=== PATIENT | female | born 1935 | race Asian ===

== ENCOUNTER 2022-04-02 01:46 | Inpatient (IN) | payer OTHER ==
[2022-04-02 01:59] VITALS: BMI 28.1
[2022-04-02] MEDS ORDERED: LACTATED RINGERS SOLUTION 1000 ML INFUS.BAG IV ONE (02:31)
[2022-04-02] MEDS ORDERED: ALBUTEROL SO4 2.5/IPRATROPIUM 0.5 INH SOL 3 ML VIAL.NEB. NEB ONE (02:39)
[2022-04-02] MEDS ORDERED: DEXAMETHASONE 4 MG TABLET (FP) PO ONE (02:49)
[2022-04-02] MEDS: ALBUTEROL SO4 2.5/IPRATROPIUM 0.5 INH SOL 3 ML VIAL.NEB. NEB SCH ×4 (02:57→03:41)
[2022-04-02] MEDS ORDERED: DEXAMETHASONE SOD PHOSPHATE 4 MG/1 ML VIAL IVPUSH ONE (03:04)
[2022-04-02] MEDS ORDERED: DEXAMETHASONE SOD PHOSPHATE 4 MG/1 ML VIAL ONE (03:09)
[2022-04-02 03:12] LABS: HEMATOCRIT 36.1 % (32.4-45.2); HEMOGLOBIN 12.6 GM/dL (10.7-15.3); MCH 29.3 pg (25.7-33.7); MEAN CELL VOLUME 83.7 fl (80-96); MEAN PLT VOLUME 7.4 fl (7.5-11.1); PLATELET COUNT 245 10^3/uL (134-434); RBC 4.31 M/mm3 (3.60-5.2); RDW 12.8 % (11.6-15.6); VENOUS BASE EXCESS -6.2 mmol/L (-2-2); VENOUS O2 SATURATION 91.1 % (70-80); VENOUS PH 7.295 (7.310-7.410); WHITE BLOOD COUNT 7.2 K/mm3 (4.0-10.0)
[2022-04-02] MEDS ORDERED: REMDESIVIR 200 MG in SODIUM CHLORIDE 250 ML IVPB ONE (03:37)
[2022-04-02 03:38] LABS: CHLORIDE 84 mmol/L (98-107)
[2022-04-02 03:40] LABS: CALCIUM 9.3 mg/dL (8.5-10.1)
[2022-04-02 03:41] LABS: ALBUMIN 3.4 g/dl (3.4-5.0); BLOOD UREA NITROGEN 18.8 mg/dL (7-18); CO2 25 mmol/L (21-32); GLUCOSE,RANDOM 178 mg/dL (74-106); MAGNESIUM 1.8 mg/dL (1.8-2.4)
[2022-04-02 03:43] LABS: SGPT/ALT 44 U/L (13-61)
[2022-04-02 03:44] LABS: CREATININE 1.1 mg/dL (0.55-1.3); SGOT/AST 49 U/L (15-37)
[2022-04-02 03:45] LABS: BILIRUBIN,TOTAL 0.5 mg/dL (0.2-1)
[2022-04-02 03:47] LABS: ALK PHOS 73 U/L (45-117)
[2022-04-02 04:08] LABS: LACTIC ACID 2.7 mmol/L (0.4-2.0)
[2022-04-02 04:09] LABS: ANION GAP 10 MMOL/L (8-16); SODIUM 119 mmol/L (136-145)
[2022-04-02] MEDS ORDERED: SODIUM CHLORIDE 1,000 ML IV SCH ×2 (04:15→14:21)
[2022-04-02] MEDS ORDERED: LORazepam 2 MG/ML SDV VIAL IVPUSH ONE ×2 (04:41→04:58)
[2022-04-02] MEDS ORDERED: DEXMEDETOMIDINE IN 0.9 % NACL 400 MCG/100 ML VIAL IVPB SCH (05:45)
[2022-04-02 05:47] LABS: ANISOCYTOSIS 3+; MACROCYTOSIS 0; OVALOCYTE 1+; ROULEAU 1+; TARGET CELLS 1+
[2022-04-02] MEDS ORDERED: HEPARIN NA (PORCINE) 5,000 UNITS/ML 1ML VIAL SQ SCH (06:00)
[2022-04-02] MEDS ORDERED: INSULIN SLIDING SCALE (NOVOLOG) 1 VIAL SQ SCH (07:00)
[2022-04-02 09:43] LABS: ARTERIAL BLD GAS O2 SATURATION 93.1 % (95-98); ARTERIAL BLOOD GAS PO2 71.6 mmHg (80-100); ARTERIAL BLOOD GAS pH 7.317 (7.350-7.450)
[2022-04-02 09:48] LABS: ALLENS TEST POSITIVE
[2022-04-02] MEDS ORDERED: FAMOTIDINE 20 MG/50 ML IVPB 20 MG/50 ML MG IVPB ONE (10:15)
[2022-04-02] MEDS ORDERED: DEXTROSE 5%-WATER - 50 ML IVPB ONE (10:23)
[2022-04-02] MEDS ORDERED: cefTRIAXone SODIUM 1 GM VIAL ONE (10:23)
[2022-04-02] MEDS: CEFTRIAXONE 1 GM in DEXTROSE 5%-WATER - 50 ML IVPB SCH (10:27)
[2022-04-02] MEDS: AZITHROMYCIN IVPB 500 MG/250 ML BAG IVPB SCH (10:28)
[2022-04-02] MEDS: MUPIROCIN 2% TOPICAL OINTMENT FOR DECOLONIZATION NS SCH ×2 (10:55→23:28)
[2022-04-02 11:55] LABS: HEMATOCRIT 33.2 % (32.4-45.2); HEMOGLOBIN 11.4 GM/dL (10.7-15.3); MCH 28.8 pg (25.7-33.7); MCHC 34.4 g/dl (32.0-36.0); MEAN CELL VOLUME 83.6 fl (80-96); MEAN PLT VOLUME 8.2 fl (7.5-11.1); PLATELET COUNT 136 10^3/uL (134-434); RBC 3.97 M/mm3 (3.60-5.2); RDW 12.7 % (11.6-15.6); WHITE BLOOD COUNT 12.6 K/mm3 (4.0-10.0)
[2022-04-02] MEDS: INSULIN SLIDING SCALE (NOVOLOG) 1 VIAL SQ SCH ×2 (11:55→17:25)
[2022-04-02 12:20] LABS: CHLORIDE 86 mmol/L (98-107); SODIUM 122 mmol/L (136-145)
[2022-04-02 12:22] LABS: ALBUMIN 3.1 g/dl (3.4-5.0); ANION GAP 12 MMOL/L (8-16); BLOOD UREA NITROGEN 18.1 mg/dL (7-18); CALCIUM 9.4 mg/dL (8.5-10.1); CO2 25 mmol/L (21-32); GLUCOSE,RANDOM 190 mg/dL (74-106)
[2022-04-02 12:25] LABS: SGPT/ALT 41 U/L (13-61)
[2022-04-02 12:26] LABS: SGOT/AST 54 U/L (15-37)
[2022-04-02 12:27] LABS: BILIRUBIN,TOTAL 0.4 mg/dL (0.2-1); TOT PROT 6.1 g/dl (6.4-8.2)
[2022-04-02 12:28] LABS: ALK PHOS 63 U/L (45-117)
[2022-04-02 12:30] LABS: N-TERMINAL BNP 4391.6 pg/ml (5-450)
[2022-04-02] MEDS: ENOXAPARIN NA (PORCINE) 40 MG/0.4 ML DISP.SYRIN SQ SCH (14:35)
[2022-04-02 15:55] LABS: URINE APPEARANCE CLEAR; URINE BILIRUBIN NEGATIVE (NEGATIVE); URINE COLOR YELLOW; URINE GLUCOSE (UA) TRACE (NEGATIVE); URINE KETONE NEGATIVE (NEGATIVE); URINE LEUK ESTERASE NEGATIVE (NEGATIVE); URINE NITRITE NEGATIVE (NEGATIVE); URINE PROTEIN NEGATIVE (NEGATIVE); URINE UROBILINOGEN 0.2 mg/dL (0.2-1.0)
[2022-04-02 18:33] LABS: CALCIUM 9.2 mg/dL (8.5-10.1)
[2022-04-02 18:34] LABS: BLOOD UREA NITROGEN 19.1 mg/dL (7-18)
[2022-04-03] MEDS: INSULIN SLIDING SCALE (NOVOLOG) 1 VIAL SQ SCH ×5 (00:08→22:58)
[2022-04-03] MEDS: CHLORHEXIDINE GLUCONATE 4% CLEANSER FOR DECOLONIZATION TP SCH ×2 (00:08→22:59)
[2022-04-03 07:17] LABS: HEMATOCRIT 36.1 % (32.4-45.2); HEMOGLOBIN 12.3 GM/dL (10.7-15.3); MCH 28.4 pg (25.7-33.7); MEAN CELL VOLUME 83.5 fl (80-96); MEAN PLT VOLUME 8.4 fl (7.5-11.1); PLATELET COUNT 246 10^3/uL (134-434); RBC 4.32 M/mm3 (3.60-5.2); RDW 12.5 % (11.6-15.6)
[2022-04-03 07:31] LABS: CALCIUM 9.3 mg/dL (8.5-10.1)
[2022-04-03 07:32] LABS: BLOOD UREA NITROGEN 25.3 mg/dL (7-18)
[2022-04-03 07:34] LABS: ALBUMIN 2.9 g/dl (3.4-5.0)
[2022-04-03 07:35] LABS: CREATININE 0.9 mg/dL (0.55-1.3)
[2022-04-03 07:37] LABS: BILIRUBIN,TOTAL 0.4 mg/dL (0.2-1); TOT PROT 5.8 g/dl (6.4-8.2)
[2022-04-03] MEDS ORDERED: DEXTROSE 5%-WATER - 50 ML IVPB ONE (09:00)
[2022-04-03] MEDS ORDERED: cefTRIAXone SODIUM 1 GM VIAL ONE (09:00)
[2022-04-03] MEDS: DEXAMETHASONE SOD PHOSPHATE 10 MG/1 ML VIAL IVPUSH SCH (09:25)
[2022-04-03] MEDS: CEFTRIAXONE 1 GM in DEXTROSE 5%-WATER - 50 ML IVPB SCH (09:25)
[2022-04-03] MEDS: ENOXAPARIN NA (PORCINE) 40 MG/0.4 ML DISP.SYRIN SQ SCH (09:25)
[2022-04-03] MEDS: AZITHROMYCIN IVPB 500 MG/250 ML BAG IVPB SCH (09:26)
[2022-04-03] MEDS: MUPIROCIN 2% TOPICAL OINTMENT FOR DECOLONIZATION NS SCH ×2 (09:26→22:59)
[2022-04-03] MEDS: REMDESIVIR 100 MG in SODIUM CHLORIDE 250 ML IVPB SCH (12:24)
[2022-04-03] MEDS: SODIUM CHLORIDE 1 GM TABLET PO SCH ×2 (12:24→22:58)
[2022-04-03] MEDS: ALBUTEROL SO4 HFA INHALER IH PRN (16:00)
[2022-04-04] MEDS: LOSARTAN POTASSIUM 50 MG TABLET PO SCH ×2 (00:40→09:42)
[2022-04-04] MEDS ORDERED: METOPROLOL TARTRATE 5 MG/5 ML VIAL IVPUSH ONE (06:04)
[2022-04-04] MEDS: INSULIN SLIDING SCALE (NOVOLOG) 1 VIAL SQ SCH ×4 (06:09→22:20)
[2022-04-04 07:22] LABS: HEMATOCRIT 36.8 % (32.4-45.2); HEMOGLOBIN 12.5 GM/dL (10.7-15.3); MCH 28.6 pg (25.7-33.7); MCHC 33.8 g/dl (32.0-36.0); MEAN CELL VOLUME 84.7 fl (80-96); MEAN PLT VOLUME 7.8 fl (7.5-11.1); PLATELET COUNT 281 10^3/uL (134-434); RBC 4.35 M/mm3 (3.60-5.2); WHITE BLOOD COUNT 16.9 K/mm3 (4.0-10.0)
[2022-04-04 07:37] LABS: ALBUMIN 2.8 g/dl (3.4-5.0)
[2022-04-04 07:38] LABS: BLOOD UREA NITROGEN 19.4 mg/dL (7-18)
[2022-04-04 07:40] LABS: CREATININE 0.9 mg/dL (0.55-1.3)
[2022-04-04 07:42] LABS: BILIRUBIN,TOTAL 0.4 mg/dL (0.2-1); TOT PROT 5.6 g/dl (6.4-8.2)
[2022-04-04] MEDS: ALBUTEROL SO4 HFA INHALER IH PRN (08:00)
[2022-04-04] MEDS ORDERED: cefTRIAXone SODIUM 1 GM VIAL ONE (09:40)
[2022-04-04] MEDS ORDERED: SODIUM CHLORIDE 50 ML IVPB ONE (09:40)
[2022-04-04] MEDS: DEXAMETHASONE SOD PHOSPHATE 10 MG/1 ML VIAL IVPUSH SCH (09:42)
[2022-04-04] MEDS: MUPIROCIN 2% TOPICAL OINTMENT FOR DECOLONIZATION NS SCH ×2 (09:42→22:20)
[2022-04-04] MEDS: REMDESIVIR 100 MG in SODIUM CHLORIDE 250 ML IVPB SCH (09:47)
[2022-04-04] MEDS: NIFEdipine E.R 60 MG TABLET PO SCH (09:47)
[2022-04-04] MEDS: ENOXAPARIN NA (PORCINE) 40 MG/0.4 ML DISP.SYRIN SQ SCH (09:47)
[2022-04-04] MEDS: CEFTRIAXONE 1 GM in SODIUM CHLORIDE 50 ML IVPB SCH (09:49)
[2022-04-04] MEDS: AZITHROMYCIN IVPB SCH (09:58)
[2022-04-04] MEDS: SODIUM CHLORIDE IVPB SCH (09:58)
[2022-04-04] MEDS: SODIUM CHLORIDE 1 GM TABLET PO SCH ×2 (09:58→22:20)
[2022-04-04] MEDS ORDERED: ALBUTEROL SO4 2.5/IPRATROPIUM 0.5 INH SOL 3 ML VIAL.NEB. NEB PRN (10:13)
[2022-04-04] MEDS ORDERED: ALBUTEROL SO4 2.5/IPRATROPIUM 0.5 INH SOL 3 ML VIAL.NEB. NEB STA (10:18)
[2022-04-04] MEDS: ALBUTEROL SO4 2.5/IPRATROPIUM 0.5 INH SOL 3 ML VIAL.NEB. NEB SCH ×4 (11:25→19:59)
[2022-04-04] MEDS: CHLORHEXIDINE GLUCONATE 4% CLEANSER FOR DECOLONIZATION TP SCH (22:20)
[2022-04-05] MEDS: INSULIN SLIDING SCALE (NOVOLOG) 1 VIAL SQ SCH ×4 (06:16→21:29)
[2022-04-05 07:32] LABS: CALCIUM 8.9 mg/dL (8.5-10.1)
[2022-04-05 07:33] LABS: ALBUMIN 2.6 g/dl (3.4-5.0); BLOOD UREA NITROGEN 17.5 mg/dL (7-18); MAGNESIUM 1.9 mg/dL (1.8-2.4)
[2022-04-05 07:36] LABS: CREATININE 0.9 mg/dL (0.55-1.3); PHOSPHOROUS 2.2 mg/dL (2.5-4.9)
[2022-04-05 07:37] LABS: HEMATOCRIT 37.6 % (32.4-45.2); HEMOGLOBIN 12.8 GM/dL (10.7-15.3); LYMPH % 6.1 % (8-40); MCH 28.6 pg (25.7-33.7); MCHC 33.9 g/dl (32.0-36.0); MEAN CELL VOLUME 84.4 fl (80-96); MEAN PLT VOLUME 8.1 fl (7.5-11.1); MONO % 7.7 % (3.8-10.2); NEUT % 86.2 % (42.8-82.8); PLATELET COUNT 271 10^3/uL (134-434); RBC 4.45 M/mm3 (3.60-5.2); RDW 13.2 % (11.6-15.6); WHITE BLOOD COUNT 15.1 K/mm3 (4.0-10.0)
[2022-04-05 07:38] LABS: BILIRUBIN,TOTAL 0.6 mg/dL (0.2-1); TOT PROT 5.6 g/dl (6.4-8.2)
[2022-04-05] MEDS: ALBUTEROL SO4 2.5/IPRATROPIUM 0.5 INH SOL 3 ML VIAL.NEB. NEB SCH ×4 (07:45→20:00)
[2022-04-05] MEDS ORDERED: cefTRIAXone SODIUM 1 GM VIAL ONE (09:11)
[2022-04-05] MEDS ORDERED: SODIUM CHLORIDE 50 ML IVPB ONE (09:11)
[2022-04-05] MEDS: CEFTRIAXONE 1 GM in SODIUM CHLORIDE 50 ML IVPB SCH (09:17)
[2022-04-05] MEDS: SODIUM CHLORIDE 1 GM TABLET PO SCH ×2 (09:17→21:29)
[2022-04-05] MEDS: REMDESIVIR 100 MG in SODIUM CHLORIDE 250 ML IVPB SCH (09:17)
[2022-04-05] MEDS: DEXAMETHASONE SOD PHOSPHATE 10 MG/1 ML VIAL IVPUSH SCH (09:18)
[2022-04-05] MEDS: ENOXAPARIN NA (PORCINE) 40 MG/0.4 ML DISP.SYRIN SQ SCH (09:18)
[2022-04-05] MEDS: AZITHROMYCIN IVPB SCH (09:19)
[2022-04-05] MEDS: SODIUM CHLORIDE IVPB SCH (09:19)
[2022-04-05] MEDS: MUPIROCIN 2% TOPICAL OINTMENT FOR DECOLONIZATION NS SCH ×2 (09:19→21:29)
[2022-04-05] MEDS: LOSARTAN POTASSIUM 50 MG TABLET PO SCH (09:19)
[2022-04-05] MEDS: NIFEdipine E.R 60 MG TABLET PO SCH (09:19)
[2022-04-05] MEDS: NYSTATIN 500,000 UNITS/5 ML SUSPENSION PO SCH ×2 (12:04→17:17)
[2022-04-05] MEDS ORDERED: QUEtiapine FUMARATE 25 MG TABLET PO ONE (19:31)
[2022-04-05] MEDS ORDERED: HALOPERIDOL LACTATE 5 MG/ML ONE (19:37)
[2022-04-05] MEDS ORDERED: HALOPERIDOL LACTATE 5 MG/ML IM ONE (20:03)
[2022-04-05] MEDS: CHLORHEXIDINE GLUCONATE 4% CLEANSER FOR DECOLONIZATION TP SCH (21:29)
[2022-04-05] MEDS ORDERED: DEXMEDETOMIDINE IN 0.9 % NACL 400 MCG/100 ML VIAL IVPB SCH (22:45)
[2022-04-06] MEDS: NYSTATIN 500,000 UNITS/5 ML SUSPENSION PO SCH ×4 (00:06→17:43)
[2022-04-06] MEDS: INSULIN SLIDING SCALE (NOVOLOG) 1 VIAL SQ SCH ×4 (06:01→22:33)
[2022-04-06 06:55] LABS: HEMATOCRIT 36.6 % (32.4-45.2); HEMOGLOBIN 12.4 GM/dL (10.7-15.3); MCH 28.8 pg (25.7-33.7); MEAN CELL VOLUME 84.7 fl (80-96); MEAN PLT VOLUME 7.5 fl (7.5-11.1); PLATELET COUNT 262 10^3/uL (134-434); RBC 4.32 M/mm3 (3.60-5.2); WHITE BLOOD COUNT 12.9 K/mm3 (4.0-10.0)
[2022-04-06] MEDS: ALBUTEROL SO4 2.5/IPRATROPIUM 0.5 INH SOL 3 ML VIAL.NEB. NEB SCH ×4 (07:20→20:00)
[2022-04-06 07:21] LABS: ALBUMIN 2.5 g/dl (3.4-5.0); BLOOD UREA NITROGEN 17.8 mg/dL (7-18); CALCIUM 9.1 mg/dL (8.5-10.1); MAGNESIUM 2.1 mg/dL (1.8-2.4)
[2022-04-06 07:24] LABS: CREATININE 0.8 mg/dL (0.55-1.3); PHOSPHOROUS 2.7 mg/dL (2.5-4.9)
[2022-04-06 07:26] LABS: BILIRUBIN,TOTAL 0.5 mg/dL (0.2-1); TOT PROT 5.4 g/dl (6.4-8.2)
[2022-04-06] MEDS ORDERED: cefTRIAXone SODIUM 1 GM VIAL ONE (09:15)
[2022-04-06] MEDS ORDERED: SODIUM CHLORIDE 50 ML IVPB ONE (09:15)
[2022-04-06] MEDS: LOSARTAN POTASSIUM 50 MG TABLET PO SCH (09:24)
[2022-04-06] MEDS: MUPIROCIN 2% TOPICAL OINTMENT FOR DECOLONIZATION NS SCH (09:24)
[2022-04-06] MEDS: DEXAMETHASONE SOD PHOSPHATE 10 MG/1 ML VIAL IVPUSH SCH (09:24)
[2022-04-06] MEDS: ENOXAPARIN NA (PORCINE) 40 MG/0.4 ML DISP.SYRIN SQ SCH (09:25)
[2022-04-06] MEDS: NIFEdipine E.R 60 MG TABLET PO SCH (09:25)
[2022-04-06] MEDS: CEFTRIAXONE 1 GM in SODIUM CHLORIDE 50 ML IVPB SCH (09:25)
[2022-04-06] MEDS: SODIUM CHLORIDE 1 GM TABLET PO SCH ×2 (09:26→22:28)
[2022-04-06] MEDS: SODIUM CHLORIDE IVPB SCH (10:36)
[2022-04-06] MEDS: AZITHROMYCIN IVPB SCH (10:36)
[2022-04-06] MEDS: REMDESIVIR 100 MG in SODIUM CHLORIDE 250 ML IVPB SCH (10:39)
[2022-04-06] MEDS ORDERED: ALBUTEROL SO4 HFA INHALER IH PRN (14:37)
[2022-04-06] MEDS ORDERED: LORazepam 2 MG/ML SDV VIAL IVPUSH ONE (19:17)
[2022-04-06] MEDS ORDERED: MUPIROCIN 2% TOPICAL OINTMENT FOR DECOLONIZATION NS SCH (22:00)
[2022-04-06] MEDS ORDERED: CHLORHEXIDINE GLUCONATE 4% CLEANSER FOR DECOLONIZATION TP SCH (22:00)
[2022-04-07] MEDS: NYSTATIN 500,000 UNITS/5 ML SUSPENSION PO SCH ×3 (00:15→14:12)
[2022-04-07] MEDS: INSULIN SLIDING SCALE (NOVOLOG) 1 VIAL SQ SCH ×3 (06:14→16:39)
[2022-04-07] MEDS ORDERED: INSULIN (NOVOLOG) ASPART 100 UNITS/ML 10ML VIAL ONE (07:03)
[2022-04-07] MEDS: ALBUTEROL SO4 2.5/IPRATROPIUM 0.5 INH SOL 3 ML VIAL.NEB. NEB SCH ×2 (08:13→12:00)
[2022-04-07 08:57] LABS: HEMATOCRIT 38.2 % (32.4-45.2); HEMOGLOBIN 12.9 GM/dL (10.7-15.3); MCH 28.4 pg (25.7-33.7); MCHC 33.7 g/dl (32.0-36.0); MEAN CELL VOLUME 84.3 fl (80-96); MEAN PLT VOLUME 8.4 fl (7.5-11.1); PLATELET COUNT 304 10^3/uL (134-434); RBC 4.53 M/mm3 (3.60-5.2); RDW 13.1 % (11.6-15.6); WHITE BLOOD COUNT 15.6 K/mm3 (4.0-10.0)
[2022-04-07 09:02] LABS: ALBUMIN 2.8 g/dl (3.4-5.0); CALCIUM 9.3 mg/dL (8.5-10.1)
[2022-04-07 09:05] LABS: CREATININE 0.8 mg/dL (0.55-1.3)
[2022-04-07 09:07] LABS: BILIRUBIN,TOTAL 0.6 mg/dL (0.2-1); TOT PROT 5.7 g/dl (6.4-8.2)
[2022-04-07] MEDS ORDERED: cefTRIAXone SODIUM 1 GM VIAL ONE ×2 (09:30→09:36)
[2022-04-07] MEDS ORDERED: SODIUM CHLORIDE 50 ML IVPB ONE ×2 (09:30→09:36)
[2022-04-07] MEDS: SODIUM CHLORIDE 1 GM TABLET PO SCH (09:50)
[2022-04-07] MEDS ORDERED: NIFEdipine E.R 60 MG TABLET PO SCH (10:00)
[2022-04-07] MEDS ORDERED: DEXAMETHASONE SOD PHOSPHATE 10 MG/1 ML VIAL IVPUSH SCH (10:00)
[2022-04-07] MEDS ORDERED: AZITHROMYCIN IVPB SCH (10:00)
[2022-04-07] MEDS ORDERED: ENOXAPARIN NA (PORCINE) 40 MG/0.4 ML DISP.SYRIN SQ SCH (10:00)
[2022-04-07] MEDS ORDERED: CEFTRIAXONE 1 GM in SODIUM CHLORIDE 50 ML IVPB SCH (10:00)
[2022-04-07] MEDS ORDERED: SODIUM CHLORIDE IVPB SCH (10:00)
[2022-04-07] MEDS ORDERED: LOSARTAN POTASSIUM 50 MG TABLET PO SCH (10:00)
[2022-04-07 14:31] VITALS: BP 157/62; PULSE 68; TEMP 98.9
== END 2022-04-07 17:07 | disposition home or self-care (01) | DRG 177 ==
LOC: JER 01:46 → JERBED 03:15 → JICU 05:07 → J6S 04-06 14:03
PROVIDERS: ADMIT Hospitalist; ATTEND Internal Medicine
PROC: XW033E5 Introduction of Remdesivir Anti-infective into Peripheral Vein, Percutaneous Approach, New Technology Group 5 (ICD-10-PCS; principal; 2022-04-02)
PROC: 3E0333Z Introduction of Anti-inflammatory into Peripheral Vein, Percutaneous Approach (ICD-10-PCS; 2022-04-02)
DX: U07.1 COVID-19 (principal); J12.82 Pneumonia due to coronavirus disease 2019; J96.01 Acute respiratory failure with hypoxia; J96.02 Acute respiratory failure with hypercapnia; G93.41 Metabolic encephalopathy; J44.0 Chronic obstructive pulmonary disease with (acute) lower respiratory infection; B37.0 Candidal stomatitis; I47.1 Supraventricular tachycardia; E87.1 Hypo-osmolality and hyponatremia; R44.3 Hallucinations, unspecified; E87.2 Acidosis; I10 Essential (primary) hypertension; E78.5 Hyperlipidemia, unspecified; E11.9 Type 2 diabetes mellitus without complications; R77.8 Other specified abnormalities of plasma proteins; R41.82 Altered mental status, unspecified; E86.1 Hypovolemia; J98.01 Acute bronchospasm
CPT/HCPCS: 0241U-QW; 36415; 36600; 71045-TC-FY; 80048; 80053; 81003; 82728; 82803; 82962; 83605; 83735; 83880; 83935; 84100; 84300; 84484; 85025; 85027; 85379; 86140; 86480; 87040; 87633; 87807; 87899; 93005; 93010; 94010; 94640; 94660; 94761; 97116-GP; 97162-GP; 99285-25; C9399; C9803-CS; J1100; J1644; U0003; U0005

== ENCOUNTER 2022-05-31 17:48 | Emergency (ER) | payer OTHER ==
[2022-05-31 18:06] VITALS: BP 172/68; PULSE 66; TEMP 97.8; BMI 21.9
[2022-05-31 18:47] LABS: INR 0.94 (0.83-1.09); PROTHROMBIN TIME (PATIENT) 10.8 SEC (9.7-13.0)
[2022-05-31 18:48] LABS: HEMATOCRIT 38.6 % (32.4-45.2); HEMOGLOBIN 13.7 G/dL (10.7-15.3); MCH 30.3 pg (25.7-33.7); MCHC 35.4 g/dl (32.0-36.0); MEAN CELL VOLUME 85.6 fl (80-96); MEAN PLT VOLUME 7.8 fl (7.5-11.1); PLATELET COUNT 271.9 10^3/uL (134-434); RBC 4.51 10^6/uL (3.60-5.2); RDW 14.4 % (11.6-15.6); WHITE BLOOD COUNT 7.4 10^3/uL (4.0-10.8)
[2022-05-31 18:49] LABS: ACTIVATED PTT 27.3 SECONDS (25.2-36.5)
[2022-05-31 18:53] LABS: ALBUMIN 3.7 g/dl (3.4-5.0); BILIRUBIN,TOTAL 0.7 mg/dl (0.2-1); CALCIUM 10.3 mg/dl (8.5-10); CREATININE 1.2 mg/dl (0.55-1.3); MAGNESIUM 1.6 mg/dL (1.8-2.4); TOT PROT 6.9 g/dl (6.4-8.2)
[2022-05-31 19:04] LABS: PLATELET ESTIMATE ADEQUATE
[2022-05-31 20:52] LABS: N-TERMINAL BNP 617.6 pg/ml (5-450)
[2022-05-31 21:26] LABS: EPITHELIAL CELLS FEW /hpf
== END 2022-05-31 21:22 | disposition home or self-care (01) ==
LOC: FER 17:48
DX: M71.21 Synovial cyst of popliteal space [Baker], right knee (principal)
CPT/HCPCS: 0241U-QW; 36415; 80053; 81003; 81015; 82550; 83735; 83880; 84484; 85027; 85610; 85730; 87086; 93005; 93970-TC; 99285-25

== ENCOUNTER 2022-08-24 07:02 | Inpatient (IN) | payer OTHER ==
[2022-08-20 16:01] VITALS: BMI 25.5
[2022-08-24] MEDS ORDERED: CEFAZOLIN 2 GM in DEXTROSE 5%-WATER - 50 ML IVPB ONE (09:00)
[2022-08-24] MEDS ORDERED: TRANEXAMIC ACID 1000 MG/10 ML VIAL IVPUSH ONE (09:00)
[2022-08-24] MEDS ORDERED: BUPIVACAINE LIPOSOME/PF (EXPAREL) 266 MG/20 ML VIAL ONE (09:04)
[2022-08-24] MEDS ORDERED: VANCOMYCIN 1,000 MG VIAL (RESTRICTED TO ID ONLY) ONE ×2 (09:04→09:53)
[2022-08-24] MEDS ORDERED: BUPIVACAINE HCL/PF 2.5 MG/ML - 30 ML VIAL IJ ONE (09:04)
[2022-08-24] MEDS ORDERED: MIDAZOLAM HCL 2 MG/2 ML SINGLE DOSE VIAL ONE (09:04)
[2022-08-24] MEDS ORDERED: BUPIVACAINE HCL/PF 0.5% (5MG/ML) 10 ML VIAL ONE (09:18)
[2022-08-24] MEDS ORDERED: TRANEXAMIC ACID 1000 MG/10 ML VIAL ONE (09:53)
[2022-08-24] MEDS ORDERED: ceFAZolin SODIUM 1 GM VIAL ONE (09:53)
[2022-08-24] MEDS ORDERED: BUPIVICAINE 0.25%/MORPH PF/KETOROLAC - 51ML DISP.SYRINGE IA ONE (10:44)
[2022-08-24] MEDS ORDERED: ONDANSETRON 4 MG/2 ML VIAL IVPUSH PRN (11:28)
[2022-08-24] MEDS ORDERED: MAG HYDROX/AL HYDROX/SIMETH 30 ML UNIT-DOSE CUP PO PRN (11:28)
[2022-08-24] MEDS ORDERED: LACTATED RINGERS SOLUTION 1,000 ML IV SCH ×2 (11:30→12:00)
[2022-08-24] MEDS ORDERED: PROPOFOL 20 ML ONE (11:35)
[2022-08-24] MEDS ORDERED: HYDROmorphone HCL/PF 1 MG/ML VIAL IVPUSH PRN (11:46)
[2022-08-24] MEDS ORDERED: oxyCODONE HCL 5 MG TABLET PO PRN (11:46)
[2022-08-24] MEDS ORDERED: ACETAMINOPHEN 1000 MG/100 ML BAG IVPB PRN (11:50)
[2022-08-24] MEDS: oxyCODONE HCL 5 MG TABLET PO PRN (13:21)
[2022-08-24] MEDS: CEFAZOLIN SODIUM 2 GM in DEXTROSE 5%-WATER 100 ML IVPB SCH (18:18)
[2022-08-24] MEDS ORDERED: GABAPENTIN 300 MG CAPSULE PO SCH (22:00)
[2022-08-24] MEDS: SENNOSIDES/DOCUSATE COMBO (SENNA PLUS) TABLET (UD) PO SCH (22:32)
[2022-08-25] MEDS: CEFAZOLIN SODIUM 2 GM in DEXTROSE 5%-WATER 100 ML IVPB SCH ×2 (01:45→10:21)
[2022-08-25] MEDS: oxyCODONE HCL 5 MG TABLET PO PRN (06:15)
[2022-08-25 08:31] LABS: CALCIUM 9.4 mg/dl (8.5-10); CREATININE 1.1 mg/dl (0.55-1.3)
[2022-08-25 08:33] LABS: HEMATOCRIT 33.8 % (32.4-45.2); HEMOGLOBIN 11.9 G/dL (10.7-15.3); MCH 30.1 pg (25.7-33.7); MCHC 35.1 g/dl (32.0-36.0); MEAN CELL VOLUME 85.8 fl (80-96); MEAN PLT VOLUME 7.8 fl (7.5-11.1); PLATELET COUNT 242.1 10^3/uL (134-434); RBC 3.94 10^6/uL (3.60-5.2); RDW 14.2 % (11.6-15.6); WHITE BLOOD COUNT 10.5 10^3/uL (4.0-10.8)
[2022-08-25] MEDS ORDERED: MULTIVITAMINS (DAILY MVI) TABLET (FP) PO SCH (10:00)
[2022-08-25] MEDS ORDERED: ASPIRIN 325 MG TABLET PO SCH (10:00)
[2022-08-25] MEDS ORDERED: PANTOPRAZOLE 40 MG TABLET PO SCH (10:00)
[2022-08-25 10:11] VITALS: RESP 16
[2022-08-25] MEDS: SENNOSIDES/DOCUSATE COMBO (SENNA PLUS) TABLET (UD) PO SCH (10:21)
[2022-08-25 14:05] VITALS: BP 174/59; PULSE 70; TEMP 99.5
== END 2022-08-25 15:29 | disposition home or self-care (01) | DRG 470 ==
LOC: FM/S 07:02
PROVIDERS: ADMIT Orthopaedic Surgery Sports Medicine; ATTEND Orthopaedic Surgery Sports Medicine
PROC: 8E0Y0CZ Robotic Assisted Procedure of Lower Extremity, Open Approach (ICD-10-PCS; 2022-08-24)
PROC: 0SRC0JZ Replacement of Right Knee Joint with Synthetic Substitute, Open Approach (ICD-10-PCS; principal; 2022-08-24 10:08)
DX: M17.11 Unilateral primary osteoarthritis, right knee (principal); E78.5 Hyperlipidemia, unspecified; I10 Essential (primary) hypertension; E11.9 Type 2 diabetes mellitus without complications
CPT/HCPCS: 36415; 73560-TC-RT-FY; 80048; 82962; 85027; 88305-TC; 88311-TC; 94760; 97010-GP; 97116-GP; 97162-GP; C1776; C1889; C9803-CS; U0003; U0005

== ENCOUNTER 2024-12-09 05:16 | Inpatient (IN) | payer OTHER ==
[2024-12-09 05:22] VITALS: BMI 27.3
[2024-12-09 06:30] LABS: BASO % 0.2 % (0-2.0); HEMATOCRIT 36.1 % (32.4-45.2); HEMOGLOBIN 11.8 GM/dL (10.7-15.3); LYMPH % 12.6 % (8-40); MCH 26.9 pg (25.7-33.7); MCHC 32.6 g/dl (32.0-36.0); MEAN CELL VOLUME 82.5 fl (80-96); MEAN PLT VOLUME 7.9 fl (7.5-11.1); MONO % 1.9 % (3.8-10.2); NEUT % 85.3 % (42.8-82.8); PLATELET COUNT 257 10^3/uL (134-434); RBC 4.38 M/mm3 (3.60-5.2); RDW 14.2 % (11.6-15.6); WHITE BLOOD COUNT 5.1 K/mm3 (4.0-10.0)
[2024-12-09] MEDS: ALBUTEROL SO4 2.5/IPRATROPIUM 0.5 INH SOL 3 ML VIAL.NEB. NEB ONE (06:32)
[2024-12-09] MEDS ORDERED: MORPHINE SULFATE 2 MG/ML SYRINGE ONE (06:36)
[2024-12-09 06:40] LABS: INR 0.95 (0.83-1.09); PROTHROMBIN TIME (PATIENT) 10.9 SEC (9.7-13.0)
[2024-12-09] MEDS: morphine CARPU-JECT 2 MG/1 ML DISP.SYRIN IVPUSH ONE (06:40)
[2024-12-09 06:46] LABS: POTASSIUM 4.6 mmol/L (3.5-5.1)
[2024-12-09 06:47] LABS: CALCIUM 9.9 mg/dL (8.5-10.1)
[2024-12-09 06:48] LABS: BLOOD UREA NITROGEN 23.8 mg/dL (7-18)
[2024-12-09 06:51] LABS: CREATININE 1.2 mg/dL (0.55-1.3)
[2024-12-09 06:53] LABS: BILIRUBIN,TOTAL 0.4 mg/dL (0.2-1); TOT PROT 6.5 g/dl (6.4-8.2)
[2024-12-09 06:55] LABS: EPI CELLS >36 /uL (0-25.1); HYALINE CASTS 0 /uL (0-3.1); URINE APPEARANCE CLEAR; URINE BACTERIA 369 /uL (0-1359); URINE BILIRUBIN NEGATIVE (NEGATIVE); URINE COLOR YELLOW; URINE GLUCOSE (UA) NEGATIVE (NEGATIVE); URINE KETONE NEGATIVE (NEGATIVE); URINE LEUK ESTERASE 1+ (NEGATIVE); URINE NITRITE NEGATIVE (NEGATIVE); URINE PROTEIN NEGATIVE (NEGATIVE); URINE RBC 5 /uL (0-23.9); URINE UROBILINOGEN 0.2 mg/dL (0.2-1.0); URINE WBC 29 /uL (0-25.8)
[2024-12-09] MEDS ORDERED: ACETAMINOPHEN 325 MG TABLET (FP) PO PRN (07:22)
[2024-12-09] MEDS ORDERED: LORazepam 2 MG/ML SDV VIAL ONE (07:34)
[2024-12-09] MEDS: LORazepam 2 MG/ML SDV VIAL IVPUSH ONE (07:39)
[2024-12-09] MEDS: ALBUTEROL SO4 2.5/IPRATROPIUM 0.5 INH SOL 3 ML VIAL.NEB. NEB SCH (08:45)
[2024-12-09 09:52] LABS: N-TERMINAL BNP 2151.7 pg/ml (5-450)
[2024-12-09] MEDS: FUROSEMIDE 40 MG/4 ML INJECTABLE VIAL IVPUSH ONE (16:36)
[2024-12-09] MEDS: ALBUTEROL SO4 2.5/IPRATROPIUM 0.5 INH SOL 3 ML VIAL.NEB. NEB PRN (16:37)
[2024-12-09] MEDS: LOSARTAN POTASSIUM 50 MG TABLET PO SCH (21:22)
[2024-12-09] MEDS: ATORVASTATIN CA 20 MG TABLET (FP) PO SCH (21:23)
[2024-12-09] MEDS: NIFEdipine E.R 60 MG TABLET PO SCH (21:51)
[2024-12-09] MEDS: LORazepam 2 MG/ML SDV VIAL IVPUSH PRN ×2 (22:01→22:36)
[2024-12-09] MEDS: QUEtiapine FUMARATE 50 MG TABLET PO SCH (23:51)
[2024-12-09] MEDS: MELATONIN 5 MG TABLETS PO ONE (23:51)
[2024-12-10] MEDS: HALOPERIDOL LACTATE 5 MG/ML IM ONE ×2 (01:22→06:16)
[2024-12-10 09:32] LABS: BASO % 0.2 % (0-2.0); EOS % 0.1 % (0-4.5); HEMATOCRIT 36.7 % (32.4-45.2); HEMOGLOBIN 12.3 GM/dL (10.7-15.3); LYMPH % 14.7 % (8-40); MCH 27.2 pg (25.7-33.7); MCHC 33.4 g/dl (32.0-36.0); MEAN CELL VOLUME 81.6 fl (80-96); MEAN PLT VOLUME 7.5 fl (7.5-11.1); MONO % 6.6 % (3.8-10.2); NEUT % 78.4 % (42.8-82.8); PLATELET COUNT 258 10^3/uL (134-434); RDW 14.2 % (11.6-15.6); WHITE BLOOD COUNT 8.7 K/mm3 (4.0-10.0)
[2024-12-10 09:59] LABS: POTASSIUM 3.9 mmol/L (3.5-5.1)
[2024-12-10 10:07] LABS: CHOLESTEROL 154 mg/dL (50-200)
[2024-12-10 10:08] LABS: LDL CHOLESTEROL (ONLY SJRH) 77 mg/dL (5-100)
[2024-12-10 10:11] LABS: HDL CHOLESTEROL 64 mg/dL (40-60)
[2024-12-10 10:18] LABS: ALBUMIN 3.1 g/dl (3.4-5.0); BLOOD UREA NITROGEN 24.7 mg/dL (7-18)
[2024-12-10 10:22] LABS: CALCIUM 9.9 mg/dL (8.5-10.1); CREATININE 1.2 mg/dL (0.55-1.3); MAGNESIUM 1.8 mg/dL (1.8-2.4)
[2024-12-10] MEDS: ENOXAPARIN NA (PORCINE) 40 MG/0.4 ML DISP.SYRIN SQ SCH (10:22)
[2024-12-10 10:25] LABS: BILIRUBIN,TOTAL 0.6 mg/dL (0.2-1); TOT PROT 6.5 g/dl (6.4-8.2)
[2024-12-10] MEDS: FUROSEMIDE 40 MG/4 ML INJECTABLE VIAL IVPUSH ONE (11:32)
[2024-12-10] MEDS: QUEtiapine FUMARATE 25 MG TABLET PO SCH (13:18)
[2024-12-10] MEDS: METOPROLOL TARTRATE 50 MG TABLET (FP) PO SCH (14:11)
[2024-12-10] MEDS: ALPRAZolam 0.25 MG TABLET PO SCH (15:45)
[2024-12-10] MEDS: BUDESONIDE 0.5 MG/2 ML INH SUSP VIAL NEB SCH (20:28)
[2024-12-11] MEDS ORDERED: guaiFENesin/CODEINE 5 ML UNIT-DOSE CUPS PO PRN (11:00)
[2024-12-11] MEDS: FUROSEMIDE 40 MG/4 ML INJECTABLE VIAL IVPUSH SCH (11:30)
[2024-12-11] MEDS: methylPREDNISolone NA SUCC 40 MG/1 ML VIAL IVPUSH SCH ×2 (11:30→22:49)
[2024-12-11] MEDS ORDERED: guaiFENesin 200 MG/10 ML 10 ML UNIT-DOSE CUPS PO PRN (12:45)
[2024-12-11] MEDS: BISACODYL 5 MG TABLET.DR (FP) PO ONE (13:11)
[2024-12-13] MEDS: HALOPERIDOL LACTATE 5 MG/ML IM PRN (01:47)
[2024-12-13] MEDS: LORazepam 2 MG/ML SDV VIAL IVPUSH ONE (04:04)
[2024-12-13 09:52] LABS: HEMATOCRIT 36.7 % (32.4-45.2); HEMOGLOBIN 12.1 GM/dL (10.7-15.3); MCH 26.9 pg (25.7-33.7); MEAN CELL VOLUME 81.3 fl (80-96); MEAN PLT VOLUME 7.4 fl (7.5-11.1); PLATELET COUNT 352 10^3/uL (134-434); RBC 4.52 M/mm3 (3.60-5.2); RDW 14.3 % (11.6-15.6); WHITE BLOOD COUNT 12.4 K/mm3 (4.0-10.0)
[2024-12-13 10:27] LABS: POTASSIUM 3.8 mmol/L (3.5-5.1)
[2024-12-13 10:29] LABS: BLOOD UREA NITROGEN 57.2 mg/dL (7-18)
[2024-12-13 10:30] LABS: CALCIUM 9.8 mg/dL (8.5-10.1)
[2024-12-13 10:31] LABS: CREATININE 2.2 mg/dL (0.55-1.3)
[2024-12-13 10:32] LABS: BILIRUBIN,TOTAL 0.6 mg/dL (0.2-1); TOT PROT 6.7 g/dl (6.4-8.2)
[2024-12-13 10:51] LABS: ANISOCYTOSIS 0; HELMET CELLS 0; HOWELL-JOLLY BODIES 0; MACROCYTOSIS 0; OVALOCYTE 0; ROULEAU 0; SICKELED CELLS 0; TARGET CELLS 0; TEAR DROP CELLS 0; TOXIC GRANULATION 0
[2024-12-13] MEDS: NIFEdipine E.R 60 MG TABLET PO SCH (11:32)
[2024-12-13] MEDS: METOPROLOL TARTRATE 50 MG TABLET (FP) PO SCH (11:32)
[2024-12-13] MEDS ORDERED: QUEtiapine FUMARATE 25 MG TABLET ONE (21:09)
[2024-12-13] MEDS: QUEtiapine FUMARATE 25 MG TABLET PO SCH (21:24)
[2024-12-14 10:31] LABS: POTASSIUM 4.1 mmol/L (3.5-5.1)
[2024-12-14 10:33] LABS: BLOOD UREA NITROGEN 57.8 mg/dL (7-18); CALCIUM 10.1 mg/dL (8.5-10.1)
[2024-12-14] MEDS ORDERED: methylPREDNISolone NA SUCC 40 MG/1 ML VIAL IVPUSH SCH ×2 (10:33→11:07)
[2024-12-14 10:37] LABS: CREATININE 1.8 mg/dL (0.55-1.3)
[2024-12-14] MEDS: methylPREDNISolone NA SUCC 40 MG/1 ML VIAL IVPUSH ONE (12:20)
[2024-12-14 12:44] VITALS: BP 125/56; PULSE 75; RESP 20; TEMP 97.1
== END 2024-12-14 18:27 | disposition home or self-care (01) | DRG 202 ==
LOC: JER 05:16 → JERBED 07:40 → J6W 10:14
PROVIDERS: ADMIT Internal Medicine; ATTEND Internal Medicine
DX: J98.01 Acute bronchospasm (principal); I50.33 Acute on chronic diastolic (congestive) heart failure; R41.0 Disorientation, unspecified; J10.1 Influenza due to other identified influenza virus with other respiratory manifestations; I11.0 Hypertensive heart disease with heart failure; E11.9 Type 2 diabetes mellitus without complications; E78.5 Hyperlipidemia, unspecified
CPT/HCPCS: 0241U-QW; 36415; 71045-TC-FY; 80048; 80053; 80061; 81003; 82140; 82962; 83036; 83605; 83735; 83880; 84443; 85025; 85610; 87086; 93005; 93010; 93306-TC; 94640; 94660; 94761; 97116-GP; 97161-GP; 99285-25